=== PATIENT | female | born 1945 | race Caucasian/White ===

== ENCOUNTER 2020-12-05 10:01 | Inpatient (IN) ==
[2020-12-05 11:22] LABS: Basophils % 0.7 %; Eosinophils # 0.1 K/mcL (0.0-0.6); Eosinophils % 1.3 %; Hematocrit 44.9 % (35.3-44.9); Hemoglobin 15.1 g/dL (11.5-15.4); Immature Granulocytes % 0.2 % (0-4); Lymphocytes % 19.5 %; Mean Corpuscular HGB Conc 33.6 g/dL (31.6-35.5); Mean Corpuscular Hemoglobin 37.2 pg (28.0-33.3); Mean Corpuscular Volume 110.6 fL (83.0-100.0); Mean Platelet Volume 9.9 fL (9.4-12.4); Monocytes # 0.7 K/mcL (0.0-1.3); Monocytes % 12.5 %; Neutrophils # 3.5 K/mcL (1.6-8.9); Platelet Count 187 K/mcL (140-400); Red Blood Count 4.06 M/mcL (3.82-4.97); Red Cell Distribution Width 13.1 % (11.5-14.5); Segmented Neutrophils % 65.8 %; White Blood Count 5.3 K/mcL (4.3-11.1)
[2020-12-05 11:40] LABS: Alanine Aminotransferase 14 Units/L (7-52); Albumin 4.2 g/dL (3.5-5.7); Albumin/Globulin Ratio 1.4 (1.1-2.2); Alkaline Phosphatase 51 Units/L (34-104); Aspartate Amino Transferase 20 Units/L (13-39); BUN/Creatinine Ratio 8 (6-26); Bilirubin,Direct 0.1 mg/dL (0.0-0.2); Bilirubin,Indirect 0.5 mg/dL (0.0-1.0); Bilirubin,Total 0.6 mg/dL (0.3-1.0); Blood Urea Nitrogen 9 mg/dL (8-23); Calcium 9.4 mg/dL (8.6-10.3); Carbon Dioxide 30 mEq/L (23-29); Chloride 106 mEq/L (98-107); Globulin 2.9 g/dL (2.4-3.5); Glucose 111 mg/dL (70-105); Magnesium 1.8 mg/dL (1.6-2.6); Osmolality,Calculated 295 (280-300); Potassium 3.9 mEq/L (3.5-5.1); Sodium 143 mEq/L (136-145); Total Protein 7.1 g/dL (6.4-8.9); eGFR For African Americans 59 (> 60); eGFR For Non-African Americans 48 (> 60)
[2020-12-05 11:42] LABS: Troponin I < 0.03 ng/mL (< 0.04)
[2020-12-05] MEDS: DilTIAZem 50 MG/50 ML IV.SOLN IVC SCH ×2 (12:51→16:31)
[2020-12-05] MEDS ORDERED: Naloxone 0.4 MG/ML INJ IVP PRN (13:48)
[2020-12-05] MEDS ORDERED: Perflutren Lipid Microsphere 1.3 ML in 0.9 % Sodium Chloride 8.7 ML IVP PRN (15:14)
[2020-12-05] MEDS: DilTIAZem CD (24hr) 180 MG CAP.ER.24H PO SCH (17:26)
[2020-12-05] MEDS: Lidocaine 5% OINT 35 APPL/35.44 GM TUBE TP SCH (18:54)
[2020-12-05] MEDS ORDERED: traZODone 50 MG TABLET PO SCH (21:30)
[2020-12-06 03:28] VITALS: TEMP 98.1
[2020-12-06 05:13] LABS: Basophils % 0.4 %; Eosinophils # 0.1 K/mcL (0.0-0.6); Eosinophils % 2.4 %; Hematocrit 41.3 % (35.3-44.9); Hemoglobin 13.7 g/dL (11.5-15.4); Immature Granulocytes % 0.2 % (0-4); Lymphocytes % 22.2 %; Mean Corpuscular HGB Conc 33.2 g/dL (31.6-35.5); Mean Corpuscular Hemoglobin 36.5 pg (28.0-33.3); Mean Corpuscular Volume 110.1 fL (83.0-100.0); Mean Platelet Volume 9.9 fL (9.4-12.4); Monocytes # 0.7 K/mcL (0.0-1.3); Monocytes % 15.7 %; Neutrophils # 2.8 K/mcL (1.6-8.9); Platelet Count 150 K/mcL (140-400); Red Blood Count 3.75 M/mcL (3.82-4.97); Red Cell Distribution Width 13.6 % (11.5-14.5); Segmented Neutrophils % 59.1 %; White Blood Count 4.7 K/mcL (4.3-11.1)
[2020-12-06 05:41] LABS: BUN/Creatinine Ratio 9 (6-26); Blood Urea Nitrogen 8 mg/dL (8-23); Calcium 8.5 mg/dL (8.6-10.3); Carbon Dioxide 29 mEq/L (23-29); Chloride 108 mEq/L (98-107); Glucose 110 mg/dL (70-105); Osmolality,Calculated 299 (280-300); Potassium 3.9 mEq/L (3.5-5.1); Sodium 145 mEq/L (136-145); eGFR For African Americans > 60 (> 60); eGFR For Non-African Americans > 60 (> 60)
[2020-12-06] MEDS: DilTIAZem 50 MG/50 ML IV.SOLN IVC SCH (06:30)
[2020-12-06] MEDS: DilTIAZem CD (24hr) 180 MG CAP.ER.24H PO SCH (08:21)
[2020-12-06] MEDS: Lidocaine 5% OINT 35 APPL/35.44 GM TUBE TP SCH (08:23)
[2020-12-06] MEDS ORDERED: *HR* Rivaroxaban 10 MG TABLET PO SCH (09:00)
[2020-12-06] MEDS ORDERED: Haloperidol Lactate 5 MG/ML VIAL IVP ONE (11:14)
[2020-12-06] MEDS ORDERED: Metoprolol XL (24 HR) Succ 50 MG TAB.ER.24H PO SCH (12:30)
[2020-12-06] MEDS ORDERED: Gabapentin 300 MG CAPSULE PO SCH (12:49)
[2020-12-06 15:06] VITALS: BP 102/75; PULSE 90; O2SAT 92
== END 2020-12-06 17:47 | disposition home or self-care (01) | DRG 309 ==
LOC: EMEROOARM 10:01 → 3NENU 10:01 → SUATTDRO 14:00 → 3NENU 14:18
PROVIDERS: ADMIT Internal Medicine; ATTEND Internal Medicine